=== PATIENT | male | born 1965 | race Caucasian/White ===

== ENCOUNTER 2018-02-13 21:45 | Emergency (ER) | payer OTHER ==
[2018-02-13] MEDS ORDERED: Silver Sulfadiazine 1% Crm 400 GM Jar TOP ONE (21:46)
[2018-02-13] MEDS ORDERED: Bacitracin/Neomycin/Polymyxin B Oint 28.4 GM Tube TOP ONE (21:46)
[2018-02-13 21:47] VITALS: BP 143/81
[2018-02-13] MEDS ORDERED: Morphine 2 MG/ML Syringe IVPUSH ONE ×2 (21:47→22:26)
[2018-02-13] MEDS ORDERED: Bacitracin Oint 30 GM Tube TOP SCH (22:00)
[2018-02-13] MEDS ORDERED: Acetaminophen/HYDROcodone 325-5 MG Tab PO PRN (22:15)
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
[2018-02-14] MEDS ORDERED: Diphtheria,Pertussis(Acell),Tetanus Vaccine 0.5 ML SDV IM ONE
[2018-02-14] MEDS ORDERED: Bacitracin/Neomycin/Polymyxin B Oint 28.4 GM Tube TOP ONE
[2018-02-14] MEDS ORDERED: Silver Sulfadiazine 1% Crm 400 GM Jar TOP ONE
== END 2018-02-13 23:00 | disposition home or self-care (01) ==
LOC: KA.ED 21:45
DX: T22.20XA Burn of second degree of shoulder and upper limb, except wrist and hand, unspecified site, initial encounter (principal); T20.211A Burn of second degree of right ear [any part, except ear drum], initial encounter; X08.8XXA Exposure to other specified smoke, fire and flames, initial encounter; Z23 Encounter for immunization
CPT/HCPCS: 16020; 90471; 90715; 96374; 96376; 99283; A9270-GY; J1670; J2270

== ENCOUNTER 2023-06-21 14:44 | Emergency (ER) | payer SELFPAY ==
[2023-06-21] MEDS: Sodium Chloride 0.9% 1,000 ML IV ONE (14:55)
[2023-06-21] MEDS: Ketorolac 30 MG/ML SDV IVPUSH ONE (15:00)
[2023-06-21 15:13] LABS: BASOPHILS ABSOLUTE AUTO 0.07 10^3/uL (0.00-0.10); BASOPHILS PERCENT AUTO 0.9 % (0.0-1.0); EOSINOPHILS PERCENT AUTO 2.4 % (1.0-3.0); HEMATOCRIT 48.5 % (40.0-52.0); IMMATURE GRAN ABSOLUTE AUTO 0.01 10^3/uL (0.00-0.50); IMMATURE GRAN PERCENT AUTO 0.1 % (0.0-5.0); LYMPHOCYTES PERCENT AUTO 35.4 % (20.0-40.0); MEAN CORPUSCULAR HEMOGLOBIN 32.1 pg (27.0-31.0); MEAN CORPUSCULAR HGB CONC 35.1 g/dL (32.0-36.0); MEAN CORPUSCULAR VOLUME 91.5 fL (82.0-92.0); MEAN PLATELET VOLUME 9.1 fL (7.4-10.4); MONOCYTES ABSOLUTE AUTO 0.72 10^3/uL (0.10-0.80); MONOCYTES PERCENT AUTO 8.8 % (2.0-8.0); NEUTROPHILS PERCENT AUTO 52.4 % (50.0-70.0); PLATELET COUNT,PLT 263 10^3/uL (150-400); RED CELL DISTRIBUTION WIDTH 12.6 % (11.5-14.5)
[2023-06-21 15:15] LABS: APPEARANCE,URINE CLEAR (CLEAR); BILIRUBIN,URINE SMALL (NEGATIVE); COLOR,URINE DARK YELLOW (YELLOW); GLUCOSE,URINE NEGATIVE (NEGATIVE); KETONES,URINE TRACE mg/dL (NEGATIVE); LEUKOCYTE ESTERASE,URINE NEGATIVE (NEGATIVE); NITRITE,URINE NEGATIVE (NEGATIVE); OCCULT BLOOD,URINE NEGATIVE (NEGATIVE); PH,URINE 5.5 (5.0-9.0); PROTEIN,URINE 30 mg/dL (NEGATIVE)
[2023-06-21 15:23] LABS: BACTERIA,URINE RARE /HPF (NONE TO FEW); EPITHELIAL CELLS,URINE RARE /LPF; RBC,URINE 0-5 /HPF (0-5); WBC,URINE 0-5 /HPF (0-5)
[2023-06-21 15:24] VITALS: PULSE 72
[2023-06-21 15:28] LABS: ALBUMIN 4.04 g/dL (3.40-5.00); ANION GAP 14.2 mmol/L (5-15); BILIRUBIN TOTAL 0.4 mg/dL (0.2-1.0); CALCIUM 8.3 mg/dL (8.7-10.3); CARBON DIOXIDE,CO2 25.5 mmol/L (21.0-32.0); CREATININE 1.08 mg/dL (0.51-1.17); EST CRCL DRUG DOSING (CG) 88.33 mL/min; POTASSIUM,K 3.7 mmol/L (3.5-5.1); PROTEIN TOTAL,TP 7.9 g/dL (6.4-8.2)
[2023-06-21] MEDS: Acetaminophen/HYDROcodone 325-5 MG Tab PO ONE (16:26)
[2023-06-21] MEDS: Tamsulosin 0.4 MG Cap.ER PO ONE (16:27)
[2023-06-21 16:55] VITALS: BP 128/67
== END 2023-06-21 16:40 | disposition home or self-care (01) ==
LOC: KA.ED 14:44
DX: K80.20 Calculus of gallbladder without cholecystitis without obstruction (principal); N20.0 Calculus of kidney; M47.817 Spondylosis without myelopathy or radiculopathy, lumbosacral region; E78.00 Pure hypercholesterolemia, unspecified; I10 Essential (primary) hypertension; K21.9 Gastro-esophageal reflux disease without esophagitis; Z79.899 Other long term (current) drug therapy
CPT/HCPCS: 74176; 80053; 81001; 85025; 96374; 99284; 99284-25; A9270-GY; J1885; J7030